=== PATIENT | female | born 1990 | race Caucasian/White ===

== ENCOUNTER → 2024-04-03 09:45 | Outpatient (REF) | payer OTHER, SELFPAY | LOC: DHSLP 09:45 | PROVIDERS: ATTENDING PHYSICIAN Internal Medicine | DX: G47.19 Other hypersomnia (principal); R06.83 Snoring | CPT/HCPCS: 95810 ==

== ENCOUNTER → 2025-08-11 14:21 | Outpatient (REF) | payer BC, SELFPAY | LOC: HWRAD 14:21 | PROVIDERS: ATTENDING PHYSICIAN Internal Medicine | DX: R80.9 Proteinuria, unspecified (principal) | CPT/HCPCS: 76775 ==

== ENCOUNTER 2025-08-27 08:53 | Emergency (ER) | payer BC, SELFPAY ==
[2025-08-27 08:55] VITALS: BP 171/101
[2025-08-27 09:49] LABS: Hematocrit 42.1 % (37.0-47.0); Hemoglobin 14.3 g/dL (12.0-16.0); Mean Corp Hgb Conc. 34.0 g/dL (33.0-37.0); Mean Corpuscular Volume 87.9 fL (81.0-99.0); Nucleated Red Blood Cells % 0 %; Platelet Count 399 10^3/uL (130-400); Red Cell Dist. Width 12.3 % (11.5-14.5)
[2025-08-27 09:57] LABS: HCG, Serum Qualitative Screen Negative
[2025-08-27 10:02] LABS: ALT (SGPT) 38 U/L (0-35); AST (SGOT) 45 U/L (14-36); Albumin 4.4 g/dl (3.5-5.0); Alkaline Phosphatase 120 U/L (38-126); Blood Urea Nitrogen 13 mg/dl (7-17); Calcium 9.2 mg/dl (8.4-10.2); Carbon Dioxide 23 mmol/L (22-30); Chloride 104 mmol/L (98-107); Glucose 113 mg/dl (70-99); Lipase 69 U/L (23-300); Potassium 4.7 mmol/L (3.5-5.1); Sodium 135 mmol/L (135-145); Total Protein 8.0 g/dl (6.3-8.2); eGFR > 60.00
--- NOTE | 2025-08-27 10:33 | ED.GENMED ---
History of Present Illness
General
Chief Complaint: Abdominal Pain
Time Seen by Provider: 08/27/25 09:36
History of Present Illness
History of Present Illness:
see MDM
Past History
Past History
ED Past Medical History: GERD, Hypothyroidism and Other (PCOS)
Social History
Tobacco: Non-smoker
Personal: Single
Employment: Employed
Phy Exam
Physical Exam
Physical Exam:
see MDM
Course
Orders/Labs/Results
Orders:
Orders
08/27/25 09:20
IV Insert/Care/Rem.- Treatment PRN
08/27/25 09:35
Complete Blood Count/With Diff Urgent
Comprehensive Metabolic Panel Urgent
HCG, Serum Qualitative Screen Urgent
Lipase Urgent
08/27/25 09:37
Test Result ONCE
08/27/25 09:50
US Abdomen Complete/Upper Urgent
Comment:
Reason For Exam: upper abd pain, eval nettie
08/27/25 10:00
0.9% Sodium Chloride 1000 ml [Nss] 1,000 ml IV BOLUS
Ketorolac [Toradol] 30 mg IV NOW STA
08/27/25 10:49
Ibuprofen [Motrin] 600 mg PO NOW STA
Abnormal Lab Results
08/27/25
09:35
WBC 14.1 H 10^3/uL
(4.8-10.8)
Abs Immat Gran (auto) 0.1 H 10^3/uL
(0-0.05)
Absolute Neuts (auto) 12.2 H 10^3/uL
(1.4-6.5)
Neutrophils % 86.8 H %
(42.2-75.2)
Lymphocytes % 8.5 L %
(20.5-51.1)
Glucose 113 H mg/dl
(70-99)
AST 45 H U/L
(14-36)
ALT 38 H U/L
(0-35)
08/27/25 09:35
08/27/25 09:35
Vital Signs
Initial and Last Documented VS:
Initial Vital Signs
Temp Pulse Resp BP Pulse Ox
36.6 C 71 18 171/101 100
08/27/25 08:55 08/27/25 08:55 08/27/25 08:55 08/27/25 08:55 08/27/25 08:55
Last Documented Vital Signs
Temp Pulse Resp BP Pulse Ox
37.1 C 99 18 136/103 98
08/27/25 10:50 08/27/25 10:50 08/27/25 08:55 08/27/25 10:50 08/27/25 10:50
MDM/Problems Addressed
Differential Diagnosis Includes:
see MDM
MDM/Problems Addressed:
Note:
CHIEF COMPLAINT(S)
Severe upper abdominal pain radiating to the back.
HISTORY OF PRESENT ILLNESS
The patient is a 35-year-old female presenting with severe upper abdominal pain that started approximately five to six hours ago. She describes the pain as being located in the upper abdomen and radiating straight across to her back. The intensity
of the pain was consistently at an eight out of ten for those five to six hours before starting to subside. Currently, the pain is rated at a three to four out of ten. The pain began around 2-3 AM and was severe enough to wake her from sleep. The
patient initially assumed it might be related to gas and attempted various remedies including taking Gas-X, a probiotic, [place], using a heating pad, and walking, but these offered only temporary mild relief. She reports a consistent history
of similar pain but not of this severity or duration. She did not take any medications for acid reflux, as she no longer uses them. The patient denies any recent heavy meals but acknowledges having 'some bad goods' yesterday. She felt nauseated but
only vomited when brushing her teeth. She denies any past abdominal surgeries. She is concerned about the possibility of gallstones, given the location and nature of the pain.
PAST MEDICAL AND SURGICAL HISTORY
The patient has a history of hypothyroidism, diabetes, and hypertension.
CHRONIC MEDICAL CONDITIONS SIGNIFICANTLY AFFECTING CARE
- Hypothyroidism
- Diabetes
- Hypertension
MEDICATIONS
- Metformin
- Levothyroxine (Synthroid)
- Losartan
REVIEW OF SYSTEMS
- Gastrointestinal: Severe upper abdominal pain radiating to the back, nausea without vomiting.
- Digestive: Reports occasional acid reflux but not currently on treatment.
- Musculoskeletal: Pain radiates to the back.
PHYSICAL EXAM
Nursing notes reviewed and vital signs reviewed.
GENERAL: Alert , in no apparent distress
EYE: pupils equal and reactive
NECK: Supple
ENT: o/p clr, mmm.
CARDIAC: Regular rate and rhythm .
LUNGS: Clear breath sounds bilaterally, no acute respiratory distress, no wheezes/rales/rhonchi
ABDOMEN: Soft, very mild right upper quadrant tenderness negative Pereira sign no cvat, normal bowel sounds
NEUROLOGICAL: Alert and oriented, no focal neuro deficits
SKIN: Warm and dry, skin intact.
MUSCULOSKELETAL: No edema, well perfused. neg christiano's sign
PSYCH: Normal and appropriate interaction.
PLAN
- Conduct an abdominal ultrasound to evaluate the presence of gallstones or gallbladder pathology.
- Perform blood tests to assess for infection or inflammation indicators such as white blood cell count.
- Administer intravenous Toradol (ketorolac) for pain management if the patient agrees, as it may help relieve symptoms similar to ibuprofen effects.
- If gallstones are symptomatic, recommend dietary modifications to avoid triggering foods and follow up as an outpatient with a surgeon. Consider elective gallbladder removal if symptoms persist and are limiting dietary intake.
DIFFERENTIAL DIAGNOSIS
The Differential Diagnosis includes, in no particular order and is not limited to:
1. Symptomatic gallstones (cholelithiasis)
2. Acute cholecystitis
3. Peptic ulcer disease
4. Acute pancreatitis
5. Gastroesophageal reflux disease (GERD)
6. Hepatitis
7. Gastritis
8. Biliary colic
9. Irritable bowel syndrome
10. Myocardial infarction (referred pain)
35-year-old female with epigastric pain lasting 5 hours waking her up in the middle of the night, she is finally feeling some improvement while she got here. She is not vomiting but had a little bit of nausea. No chills. Here was mildly tender to
the right upper quadrant with a positive Pereira sign, afebrile well-appearing. Patient's labs revealed mild transaminitis, white count of 14, and her ultrasound shows cholelithiasis without obvious evidence of cholecystitis. After Motrin and p.o.
challenge she actually feels 0 pain. She is not febrile. I discussed this with ED attending. She likely just has symptomatic cholelithiasis, she was given return precautions and outpatient surgery follow-up
CARE-UPDATE
08/27/25 - 11:47
Patient tolerated crackers and water without issues; no worsening pain or vomiting reported. Blood pressure noted at 130/100, likely due to missed dose of losartan last night as the patient was not feeling well. Patient feels fine currently and is
approved for discharge.
*Pulse Oximetry
SaO2: 100
Oxygen Mode of Delivery: Room air
Patient hypoxic: no
*Critical Care Note
Total Time (30-74mins, 75-104mins- exclusive of procedures): Not Applicable
ED Attending Note
-
Portions of this chart may have been created with voice recognition software.� Occasional wrong word or��sound alike� substitutions may have occurred due to the inherent limitations of voice recognition software.
Discharge Plan
Departure
Patient Disposition: Home (Routine Discharge)
Date of Disposition: 08/27/25
Time of Disposition: 11:47
Patient with high blood pressure during this ER visit?: Yes
Condition: Fair
Covid-19: Not Applicable
Discharge Problem:
Cholelithiasis
Instructions: Gallstones (DC), BLOOD PRESSURE
Prescriptions:
No Action
cephalexin 500 MG capsule
500 mg PO TID Qty: 21 0RF
Referrals:
Marisela Coats MD [Family Provider, Internal Medicine]
Angel Luis Hooper MD [Active, Surgical] - Follow up in 1 week
Activity Restrictions/Additional Instructions:
Your pain was likely from gallstones, you have several in her gallbladder. You should try to avoid or limit the fatty foods that you eat as this can trigger more pain. You can try Tylenol or ibuprofen for the pain.
You can follow-up with a general surgeon as an outpatient and consider having an elective gallbladder removal however if you start developing fever, vomiting, worse or persistent pain, inability to eat, you may need your gallbladder out more
urgently so return to the ER.
Interventions
Interventions:
*General Assessment Last Done: 08/27/25 10:57
*Neglect/Abuse Screening Last Done: 08/27/25 10:57
*ED COVID-19 Vaccine History Last Done: 08/27/25 08:55
*ED Influenza Vaccine History Last Done: 08/27/25 08:55
[facility] Fall Risk Assessment Tool Last Done: 08/27/25 10:56
*Risk Screen - Suicide (C-SSRS) Last Done: 08/27/25 08:55
*Nursing Disposition Last Done: 08/27/25 12:15
CL-Tybvlb-Lczyckqfls Assessment Last Done: 08/27/25 10:30
Discharge Date and Time
Discharge Date/Time: 08/27/25 12:15
Print Language: NEPALI
[2025-08-27 10:50] VITALS: BP 136/103
[2025-08-27] MEDS: MOTRIN 600 MG PO (10:55)
== END 2025-08-27 12:15 | disposition home or self-care (01) ==
LOC: EMR 08:53
PROVIDERS: EMERGENCY PHYSICIAN Emergency Medicine; FAMILY PHYSICIAN Internal Medicine
DX: K80.20 Calculus of gallbladder without cholecystitis without obstruction (principal); K21.9 Gastro-esophageal reflux disease without esophagitis; E03.9 Hypothyroidism, unspecified; E28.2 Polycystic ovarian syndrome; E11.9 Type 2 diabetes mellitus without complications; I10 Essential (primary) hypertension
CPT/HCPCS: 99284; 76700; 80053; 83690; 84703; 85025